=== PATIENT | female | born 1990 | race Caucasian/White ===

== ENCOUNTER 2019-02-26 09:30 | Emergency (ER) | payer MEDICAID ==
[2019-02-26] MEDS ORDERED: NS 1,000 ML IV ONE (09:50)
[2019-02-26] MEDS ORDERED: ONDANSETRON 4 MG/2 ML VIAL IVP ONE (09:50)
[2019-02-26 10:02] LABS: PLATELET COUNT 184 10^3/uL (150-400)
--- NOTE | 2019-02-26 10:17 | EDPHY ---
H & P Stated Complaint: dehydration Time Seen by Provider: 02/26/19 09:37 HPI/ROS: CHIEF COMPLAINT: "I am dehydrated" HISTORY OF PRESENT ILLNESS: 28-year-old female complaining of intractable vomiting since yesterday morning. Intermittent loose stools. No abdominal pain. Unable tolerate any oral intake. Patient notes prior history of similar, since quitting alcohol use in October 2018 she has been experiencing recurrent episodes of intractable vomiting. History of daily marijuana use.. Denies: Urinary abnormality, back or flank pain, fever chills, flu-like symptoms PRIMARY CARE PROVIDER: REVIEW OF SYSTEMS: 10 systems reviewed and negative with the exception of the elements mentioned in the history of present illness PAST MEDICAL & SURGICAL HISTORY: No pertinent medical or surgical history SOCIAL HISTORY: Prior history of heavy alcohol abuse, sober since October 2018. Current history of daily marijuana use. PHYSICAL EXAM (Prior to examination, patient consented to physical exam, hands were washed and my usual and customary physical exam procedures followed) 1) GENERAL: Well-developed, well-nourished, alert and oriented. Appears to be in no acute distress. 2) HEAD: Normocephalic, atraumatic 3) HEENT: Pupils equal, round, reactive to light bilaterally. Sclera anicteric. Nasopharynx, oropharynx, clear, no lesions. Dry mucous membranes. 4) NECK: Full range of motion, no meningeal signs. 5) LUNGS: Clear auscultation bilaterally, no wheezes, no rhonchi, no retractions. 6) HEART: Regular rate and rhythm, no murmur, no heave, no gallop. 7) ABDOMEN: No guarding, no rebound, no focal tenderness, negative McBurney's, negative Cantrell's, negative Rovsing's, negative peritoneal sign, I am unable to elicit any abdominal pain on exam. Abdomen is flat. No tympany. 8) MUSCULOSKELETAL: Moving all extremities, no focal areas of tenderness, no obvious trauma. No peripheral edema or discoloration. 9) BACK: No CVA tenderness, no midline vertebral tenderness, no fluctuance, no step-off, no obvious trauma, no visual or palpable abnormality. 10) SKIN: No rash, no petechiae. 11) Psychiatric: Patient is oriented X 3, there is no agitation. DIFFERENTIAL DIAGNOSIS: My differential diagnosis includes, but is not limited to, acute appendicitis, acute cholecystitis, bowel obstruction, acute pancreatitis, ,, gastritis. The patient understands that this diagnosis is provisional and can never be 100% accurate. This is a partial list of diagnoses considered. These considerations are based on history, physical exam, past history and reassessment. - Personal History LMP (Females 10-55): 15-21 Days Ago Current Tetanus/Diphtheria Vaccine: Yes Current Tetanus Diphtheria and Acellular Pertussis (TDAP): Yes Tetanus Vaccine Date: last 10 years - Medical/Surgical History Hx Asthma: No Hx Diabetes: No Hx Cardiac Disease: No Hx Renal Disease: No Hx Cirrhosis: No Hx Alcoholism: Yes Hx HIV/AIDS: No Hx Splenectomy or Spleen Trauma: No Other PMH: withdrawal seizures, - Social History Smoking Status: Never smoked Constitutional: Initial Vital Signs Heart Rate 134 H 02/26/19 09:40 Respiratory Rate 18 02/26/19 09:40 Blood Pressure 135/99 H 02/26/19 09:40 O2 Sat (%) 96 02/26/19 09:40 O2 Delivery Mode Room Air Allergies/Adverse Reactions: No Known Allergies Allergy (Unverified 02/26/19 09:46) Home Medications: Medication Instructions Recorded Ondansetron Odt [Zofran Odt] 4 mg PO Q4PRN PRN #10 tab 02/26/19 Medical Decision Making ED Course/Re-evaluation: 12:06 p.m.: Patient re-evaluated. Discussed her laboratory studies. This time she is smiling, sitting upright, tolerating oral intake. She states that she is feeling "100% better". I re-examined her abdomen which is soft no guarding no rebound. I am unable to elicit any abdominal pain whatsoever on the patient. At this time I think that acute surgical abdominal pathology is less than likely this patient I do not think that imaging studies indicated at this time. She notes history of ongoing episodes of vomiting since becoming sober from alcohol in October 2018. She notes history of daily marijuana use. I recommended cessation marijuana as well. 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 She feels comfortable being discharged. Patient feels comfortable being discharged. All questions and concerns addressed by myself. Patient given my usual and customary discharge precautions and instructions regarding their clinical impression. Care of patient under supervision of secondary supervising physician Dr Rondon with whom I discussed case. - Data Points Laboratory Results: Laboratory Results 02/26/19 09:56 02/26/19 09:56 02/26/19 02/26/19 02/26/19 09:56 09:56 09:49 WBC 14.38 10^3/uL H 10^3/uL (3.80-9.50) RBC 4.88 10^6/uL 10^6/uL (4.18-5.33) Hgb 14.0 g/dL g/dL (12.6-16.3) Hct 40.2 % % (38.0-47.0) MCV 82.4 fL fL (81.5-99.8) MCH 28.7 pg pg (27.9-34.1) MCHC 34.8 g/dL g/dL (32.4-36.7) RDW 14.3 % % (11.5-15.2) Plt Count 184 10^3/uL 10^3/uL (150-400) MPV 10.2 fL fL (8.7-11.7) Neut % (Auto) 79.4 % H % (39.3-74.2) Lymph % (Auto) 9.2 % L % (15.0-45.0) Greene % (Auto) 11.0 % % (4.5-13.0) Eos % (Auto) 0.0 % L % (0.6-7.6) Baso % (Auto) 0.1 % L % (0.3-1.7) Nucleat RBC Rel Count 0.0 % % (0.0-0.2) Absolute Neuts (auto) 11.42 10^3/uL H 10^3/uL (1.70-6.50) Absolute Lymphs (auto) 1.32 10^3/uL 10^3/uL (1.00-3.00) Absolute Monos (auto) 1.58 10^3/uL H 10^3/uL (0.30-0.80) Absolute Eos (auto) 0.00 10^3/uL L 10^3/uL (0.03-0.40) Absolute Basos (auto) 0.01 10^3/uL L 10^3/uL (0.02-0.10) Absolute Nucleated RBC 0.00 10^3/uL 10^3/uL (0-0.01) Immature Gran % 0.3 % % (0.0-1.1) Immature Gran # 0.04 10^3/uL 10^3/uL (0.00-0.10) RBC/WBC/PLT Morphology TNP Platelet Estimate TNP Sodium 140 mEq/L mEq/L (135-145) Potassium 3.1 mEq/L L mEq/L (3.5-5.2) Chloride 92 mEq/L L mEq/L (97-110) Carbon Dioxide 27 mEq/l mEq/l (22-31) Anion Gap 21 mEq/L H mEq/L (6-14) BUN 14 mg/dL mg/dL (7-23) Creatinine 0.8 mg/dL mg/dL (0.6-1.0) Estimated GFR > 60 Glucose 118 mg/dL H mg/dL (70-100) Calcium 9.7 mg/dL mg/dL (8.5-10.4) Total Bilirubin 2.4 mg/dL H mg/dL (0.1-1.4) Conjugated Bilirubin 0.6 mg/dL H mg/dL (0.0-0.5) Unconjugated Bilirubin 1.8 mg/dL H mg/dL (0.0-1.1) AST 38 IU/L IU/L (14-46) ALT 31 IU/L IU/L (9-52) Alkaline Phosphatase 103 IU/L IU/L (38-126) Total Protein 9.2 g/dL H g/dL (6.3-8.2) Albumin 4.9 g/dL g/dL (3.5-5.0) Lipase 74 IU/L IU/L (23-300) Beta HCG, Qual NEGATIVE Medications Given: Discontinued Medications Sodium Chloride (Ns) 1,000 mls @ 0 mls/hr IV ONCE ONE PRN Reason: Wide Open Stop: 02/26/19 09:51 Last Admin: 02/26/19 09:53 Dose: 1,000 mls Ondansetron HCl (Zofran) 4 mg IVP EDNOW ONE Stop: 02/26/19 09:51 Last Admin: 02/26/19 10:55 Dose: Not Given Departure - Departure Disposition: Home, Routine, Self-Care Clinical Impression: Vomiting Qualifiers: Vomiting type: unspecified Vomiting Intractability: non-intractable Nausea presence: with nausea Qualified Code(s): R11.2 - Nausea with vomiting, unspecified Condition: Good Instructions: Acute Nausea and Vomiting (ED) Additional Instructions: Seek immediate medical attention if you develop new or worsening symptoms, if you develop fevers, chills, inability to tolerate oral intake or any other symptoms that concerns you. Referrals: EVAN SOSA [Other] - 1-2 days without fail Hi Martines MD [Medical Doctor] - 1-2 days without fail Prescriptions: Ondansetron Odt [Zofran Odt] 4 mg PO Q4PRN PRN #10 tab PRN Reason: Nausea
[2019-02-26 12:14] VITALS: BP 121/63
== END 2019-02-26 12:20 | disposition home or self-care (01) ==
DX: R11.2 Nausea with vomiting, unspecified (principal); F12.90 Cannabis use, unspecified, uncomplicated